=== PATIENT | male | born 1950 | race Caucasian/White ===

== ENCOUNTER 2019-02-24 10:19 | Day surgery (SDC) | payer MEDICARE ==
[~2019-02-24 10:19] MED LIST: Metoclopramide 10 MG/2 ML SDV IV PRN; Sodium Chloride 0.9% 1,000 ML IV SCH
[2019-02-24] MEDS ORDERED: Propofol 1,000 MG/100 ML SDV ONE (13:00)
[2019-02-24 13:30] VITALS: BP 127/78; PULSE 60
--- NOTE | 2019-02-24 13:51 | OR ---
DATE OF OPERATION: 02/24/2019 SURGEON: Leland Lees MD PREOPERATIVE DIAGNOSIS: Screening colonoscopy. POSTOPERATIVE DIAGNOSIS: Screening colonoscopy. PROCEDURE: Colonoscopy. ANESTHESIA: MAC. ESTIMATED BLOOD LOSS: None. COMPLICATIONS: None. INDICATION FOR THE PROCEDURE: The patient is a 69-year-old male here today for his first screening colonoscopy. Denies any change in bowel habits. DESCRIPTION OF PROCEDURE: Informed consent was obtained from the patient. The patient was taken to the operating room, placed on the table in a left lateral decubitus position. Monitored anesthesia care was administered. Digital rectal exam performed and was normal. Colonoscope then advanced through the anus, directed toward the cecum. Cecum was reached and identified by appendiceal orifice as well as ileocecal valve. Colonoscope then slowly withdrawn. No masses. No polyps. No areas of ischemia or inflammation identified. The rectum was also unremarkable. Colonoscope then withdrawn. FINDINGS: Normal colonoscopy. RECOMMENDATIONS: Would recommend repeat screening colonoscopy in 10 years. ASHLYN/ELEUTERIO /[id number]
== END 2019-02-24 14:22 | disposition home or self-care (01) ==
LOC: LB.SDS 10:19
PROVIDERS: ATTEND Surgery
DX: Z12.11 Encounter for screening for malignant neoplasm of colon (principal); K21.9 Gastro-esophageal reflux disease without esophagitis; M10.9 Gout, unspecified
CPT/HCPCS: G0121; J2704